=== PATIENT | male | born 1965 | race Caucasian/White ===

== ENCOUNTER 2017-06-28 14:16 | Inpatient (IN) | payer OTHER ==
[~2017-06-28] VITALS: Ht 182.9 cm; Wt 94.0 kg
[2017-06-28] MEDS ORDERED: ONDANSETRON 2MG/ML, 2ML ONE (14:55)
[2017-06-28] MEDS ORDERED: HYDROmorphone 2 MG/ML, 1ML ONE ×2 (14:55→16:32)
[2017-06-28] MEDS: HYDROmorphone 1 MG/ML, 1ML IVPush PRN ×2 (14:59→16:36)
[2017-06-28] MEDS ORDERED: SODIUM CHLORIDE 0.9% 1,000ML IVBOLUS ONE (15:00)
[2017-06-28] MEDS ORDERED: ONDANSETRON 2MG/ML, 2ML IVPush ONE (15:00)
[2017-06-28 15:29] LABS: MEAN CORPUSCULAR HEMOGLOBIN 26.9 pg (27.5-34.5); MEAN CORPUSCULAR HGB CONC 32.4 g/dL (33.2-36.2); MEAN CORPUSCULAR VOLUME 82.9 fL (81-97); PLATELET COUNT 341 x10^3/uL (130-400); RED BLOOD COUNT 5.51 x10^6/uL (4.38-5.82); RED CELL DISTRIBUTION WIDTH 14.6 % (9.4-14.8)
[2017-06-28 15:35] LABS: ALBUMIN 3.4 g/dL (3.4-5.0); ANION GAP 9 mmol/L (5-15); CALCIUM 8.7 mg/dL (8.5-10.1); CHLORIDE 111 mmol/L (98-107)
[2017-06-28 15:38] LABS: ALANINE AMINOTRANSFERASE 18 U/L (12-78); ALKALINE PHOSPHATASE 90 U/L (45-117); BILIRUBIN,TOTAL 0.6 mg/dL (0.2-1.0); CREATININE 0.83 mg/dL (0.7-1.3); TOTAL PROTEIN 6.8 g/dL (6.4-8.2)
[2017-06-28 15:57] LABS: MD YES
[2017-06-28 16:00] LABS: BAND#(MANUAL) 1.83 x10^3/uL; BANDS%(MANUAL) 7 % (0-7); LYMPH#(MANUAL) 1.57 x10^3/uL (1-3.4); LYMPHS% (MANUAL) 6 % (22-44); MONOS#(MANUAL) 1.31 x10^3/uL (0.3-2.7); MONOS% (MANUAL) 5 % (2-9); SEGS% (MANUAL) 82 % (42-75)
[2017-06-28 16:01] LABS: <RBC MORPHOLOGY> NORMAL
[2017-06-28 16:02] LABS: <PLATELET ESTIMATE> ADEQUATE; <PLT MORPHOLOGY> NORMAL PLT MORPH
[2017-06-28] MEDS ORDERED: OMNIPAQUE 350 MG/ML, 100ML BOTTLE ONE (16:14)
[2017-06-28] MEDS ORDERED: METRONIDAZOLE PMX 500MG/100ML 100 ML ONE (16:59)
[2017-06-28] MEDS ORDERED: METRONIDAZOLE PMX 500MG/100ML 100 ML IV ONE (17:00)
[2017-06-28] MEDS ORDERED: CYAN100T PO (17:52)
[2017-06-28] MEDS ORDERED: ENOX40SY4 SQ (17:52)
[2017-06-28] MEDS ORDERED: OMEP40CA6 PO (17:52)
[2017-06-28] MEDS ORDERED: MORP1VIA2 IVPush (17:52)
[2017-06-28] MEDS ORDERED: TRAZ150T62 PO (17:52)
[2017-06-28] MEDS ORDERED: NICO-486 TD (17:52)
[2017-06-28] MEDS ORDERED: SIME80TA15 PO (17:52)
[2017-06-28] MEDS ORDERED: CITA40TA5 PO (17:52)
[2017-06-28] MEDS ORDERED: DICLOFENAC 1% GEL TP (17:52)
[2017-06-28] MEDS ORDERED: ROSU10TA PO (17:52)
[2017-06-28] MEDS ORDERED: BUPR300T4 PO (17:52)
[2017-06-28] MEDS ORDERED: CYCL-259 PO (17:52)
[2017-06-28] MEDS ORDERED: CHOL200040 PO (17:52)
[2017-06-28] MEDS ORDERED: OXYC5CAP2 PO (17:52)
[2017-06-28 19:23] LABS: CLOSTRIDIUM DIFFICILE ANTIGEN NEGATIVE; CLOSTRIDIUM DIFFICILE TOXIN NEGATIVE (Negative)
[2017-06-28] MEDS ORDERED: ONDANSETRON 2MG/ML, 2ML IVPush PRN (21:30)
[2017-06-28] MEDS: LACTATED RINGERS 1,000 ML IV SCH (21:46)
[2017-06-28] MEDS: KETOROLAC 30 MG/1 ML IVPush PRN (21:46)
[2017-06-29] MEDS: METRONIDAZOLE PMX 500MG/100ML 100 ML IV SCH ×3 (00:56→17:29)
[2017-06-29 01:16] VITALS: BP 123/83
[2017-06-29 04:41] VITALS: BP 107/67
[2017-06-29] MEDS: KETOROLAC 30 MG/1 ML IVPush PRN ×4 (04:45→23:44)
[2017-06-29] MEDS: LACTATED RINGERS 1,000 ML IV SCH ×2 (05:26→15:05)
[2017-06-29 07:00] VITALS: BP 110/63
[2017-06-29 07:29] LABS: ANION GAP 7 mmol/L (5-15); CHLORIDE 107 mmol/L (98-107); CREATININE 0.83 mg/dL (0.7-1.3)
[2017-06-29 07:32] LABS: MEAN CORPUSCULAR HEMOGLOBIN 27.1 pg (27.5-34.5); MEAN CORPUSCULAR HGB CONC 32.8 g/dL (33.2-36.2); MEAN CORPUSCULAR VOLUME 82.5 fL (81-97); MEAN PLATELET VOLUME 8.1 fL (7.4-10.4); PLATELET COUNT 287 x10^3/uL (130-400); RED CELL DISTRIBUTION WIDTH 14.8 % (9.4-14.8)
[2017-06-29 09:00] LABS: BASOPHILS # (AUTO) 0.04 x10^3/uL (0-0.1); BASOPHILS % (AUTO) 0 % (0-1); EOSINOPHILS # (AUTO) 0.03 x10^3/uL (0-0.4); EOSINOPHILS % (AUTO) 0 % (1-7); LYMPHOCYTES # (AUTO) 2.13 x10^3/uL (1-3.4); LYMPHOCYTES % (AUTO) 13 % (22-44); MD SCAN; MONOCYTES # (AUTO) 1.66 x10^3/uL (0.2-0.8); MONOCYTES % (AUTO) 10 % (2-9); NEUTROPHILS # (AUTO) 12.55 x10^3/uL (1.8-6.8); NEUTROPHILS % (AUTO) 77 % (42-75)
[2017-06-29] MEDS ORDERED: MAGNESIUM SULFATE 1 GM in SODIUM CHLORIDE 0.9% 50 ML IV ONE (09:30)
[2017-06-29] MEDS: FAMOTIDINE 20 MG/2 ML IVPush SCH ×2 (10:05→21:02)
[2017-06-29 12:37] VITALS: BP 107/64
[2017-06-29] MEDS: ACETAMINOPHEN 500 MG TABLET PO SCH ×2 (13:06→21:02)
[2017-06-29 19:23] VITALS: BP 111/66
[2017-06-30] MEDS: METRONIDAZOLE PMX 500MG/100ML 100 ML IV SCH ×3 (00:58→17:33)
[2017-06-30] MEDS: LACTATED RINGERS 1,000 ML IV SCH ×2 (00:59→09:25)
[2017-06-30 01:50] VITALS: BP 133/79
[2017-06-30] MEDS: ACETAMINOPHEN 500 MG TABLET PO SCH ×3 (05:24→21:48)
[2017-06-30] MEDS: KETOROLAC 30 MG/1 ML IVPush PRN ×2 (06:31→21:36)
[2017-06-30 06:48] VITALS: BP 131/83
[2017-06-30 08:18] LABS: ALBUMIN 2.8 g/dL (3.4-5.0); ANION GAP 7 mmol/L (5-15); CALCIUM 8.2 mg/dL (8.5-10.1); CHLORIDE 110 mmol/L (98-107)
[2017-06-30 08:22] LABS: ALANINE AMINOTRANSFERASE 19 U/L (12-78); ALKALINE PHOSPHATASE 63 U/L (45-117); BILIRUBIN,TOTAL 0.5 mg/dL (0.2-1.0); CREATININE 0.68 mg/dL (0.7-1.3); TOTAL PROTEIN 5.6 g/dL (6.4-8.2)
[2017-06-30 08:27] LABS: BASOPHILS # (AUTO) 0.03 x10^3/uL (0-0.1); BASOPHILS % (AUTO) 0 % (0-1); EOSINOPHILS # (AUTO) 0.13 x10^3/uL (0-0.4); EOSINOPHILS % (AUTO) 2 % (1-7); HEMOGRAM NOTE RECHECKED; LYMPHOCYTES # (AUTO) 1.97 x10^3/uL (1-3.4); LYMPHOCYTES % (AUTO) 23 % (22-44); MD NO; MEAN CORPUSCULAR HEMOGLOBIN 27.2 pg (27.5-34.5); MEAN CORPUSCULAR HGB CONC 32.8 g/dL (33.2-36.2); MEAN PLATELET VOLUME 8.1 fL (7.4-10.4); MONOCYTES # (AUTO) 0.73 x10^3/uL (0.2-0.8); MONOCYTES % (AUTO) 9 % (2-9); NEUTROPHILS # (AUTO) 5.76 x10^3/uL (1.8-6.8); NEUTROPHILS % (AUTO) 67 % (42-75); PLATELET COUNT 250 x10^3/uL (130-400); RED CELL DISTRIBUTION WIDTH 14.7 % (9.4-14.8)
[2017-06-30] MEDS: FAMOTIDINE 20 MG/2 ML IVPush SCH ×2 (09:25→21:22)
[2017-06-30 12:54] VITALS: BP 152/93
[2017-06-30] MEDS ORDERED: CYCLOBENZAPRINE 10 MG TABLET PO PRN (14:00)
[2017-06-30] MEDS ORDERED: OXYcodone IR 5MG TABLET PO PRN (14:00)
[2017-06-30] MEDS: OXYcodone IR 5MG TABLET PO PRN ×2 (14:06→21:48)
[2017-06-30] MEDS ORDERED: DICYCLOMINE 10 MG CAPSULE PO SCH (16:00)
[2017-06-30 18:44] VITALS: BP 155/91
[2017-06-30] MEDS ORDERED: TRAZODONE 150MG TABLET PO SCH (21:00)
[2017-06-30] MEDS ORDERED: ATORVASTATIN 20 MG TABLET PO SCH (21:00)
[2017-07-01 00:27] VITALS: BP 116/72
[2017-07-01] MEDS: METRONIDAZOLE PMX 500MG/100ML 100 ML IV SCH ×2 (01:09→08:15)
[2017-07-01] MEDS: ACETAMINOPHEN 500 MG TABLET PO SCH (06:00)
[2017-07-01] MEDS ORDERED: METR500T8 PO (06:51)
[2017-07-01] MEDS: OXYcodone IR 5MG TABLET PO PRN (07:05)
[2017-07-01] MEDS: FAMOTIDINE 20 MG/2 ML IVPush SCH (08:03)
[2017-07-01 08:44] VITALS: BP 148/89
[2017-07-01] MEDS ORDERED: CYANOCOBALOMIN 100MCG TABLET PO SCH (09:00)
[2017-07-01] MEDS ORDERED: BUPROPION HCL 450 MG HOMEMEDPO SCH (09:00)
[2017-07-01] MEDS ORDERED: CITALOPRAM 20 MG TABLET PO SCH (09:00)
== END 2017-07-01 10:27 | disposition home or self-care (01) | DRG 392 ==
LOC: ED 16:59 → EDIP 17:00 → ED 17:19 → 3NE 18:29
PROVIDERS: ADMIT Internal Medicine; ATTEND Internal Medicine
DX: A09 Infectious gastroenteritis and colitis, unspecified (principal); M87.851 Other osteonecrosis, right femur; E66.9 Obesity, unspecified; F43.10 Post-traumatic stress disorder, unspecified; G47.00 Insomnia, unspecified; G89.29 Other chronic pain; K58.0 Irritable bowel syndrome with diarrhea; D72.829 Elevated white blood cell count, unspecified; Z68.28 Body mass index [BMI] 28.0-28.9, adult; Z90.49 Acquired absence of other specified parts of digestive tract
CPT/HCPCS: 36415; 74177; 80048; 80053; 83690; 83735; 85025; 87324; 89055; J1170; J1885; J2405; J3475; Q9967; J7030; J7120; S0028